=== PATIENT | male | born 1960 | race Caucasian/White ===

== ENCOUNTER 2018-08-06 12:54 | Emergency (ER) | payer OTHER ==
[2018-08-06] MEDS: TETRACAINE 0.5% 4 ML OPH RIGHT EYE (14:00)
[2018-08-06] MEDS: FLUORESCEIN STRIP RIGHT EYE (14:08)
== END 2018-08-06 15:08 | disposition home or self-care (01) ==
LOC: FTE 12:54
DX: S05.8X1A Other injuries of right eye and orbit, initial encounter (principal); I10 Essential (primary) hypertension; F17.210 Nicotine dependence, cigarettes, uncomplicated; X58.XXXA Exposure to other specified factors, initial encounter; Y92.009 Unspecified place in unspecified non-institutional (private) residence as the place of occurrence of the external cause
CPT/HCPCS: 99283; Z7502